=== PATIENT | male | born 1980 | race Caucasian/White ===

== ENCOUNTER 2017-05-26 18:59 | Emergency (ER) | payer BC ==
[2017-05-26 19:09] VITALS: BP 120/71
--- NOTE | 2017-05-26 19:25 | UC ---
Ear Complaint HPI - HPI Summary HPI Summary: complaint of left ear fullness for approx 1 week intermiitent pain in left ear tried to flush it wit peroxide which made the pain worse hearing is different in ear-less volume recent URI 2 weeks ago-denies sinus congestion and fever hasn't taken any medication for pain - History of Current Complaint Chief Complaint: UCEar Stated Complaint: LEFT EAR COMPLAINT Time Seen by Provider: 05/26/17 19:19 Hx Obtained From: Patient - Allergies/Home Medications Allergies/Adverse Reactions: Allergies Allergy/AdvReac Type Severity Reaction Status Date / Time No Known Allergies Allergy Verified 05/26/17 19:09 PMH/Surg Hx/FS Hx/Imm Hx Previously Healthy: Yes Other History Of: Negative For: HIV, Hepatitis B, Hepatitis C, Anticoagulant Therapy - Surgical History Surgical History: Yes Surgery Procedure, Year, and Place: CHOLECYSTECTOMY--05/2016 - Family History Known Family History: Positive: None, Other - biliary colic Negative: Hypertension, Diabetes - Social History Occupation: Employed Full-time Lives: With Family Alcohol Use: Rare Substance Use Type: None Smoking Status (MU): Former Smoker When Did the Patient Quit Smoking/Using Tobacco: 10 YRS Review of Systems Constitutional: Negative Skin: Negative Eyes: Negative ENT: Ear Ache Respiratory: Negative Cardiovascular: Negative Gastrointestinal: Negative Genitourinary: Negative Motor: Negative Neurovascular: Negative Musculoskeletal: Negative Neurological: Negative Psychological: Negative All Other Systems Reviewed And Are Negative: Yes Physical Exam Triage Information Reviewed: Yes Appearance: Well-Appearing, No Pain Distress, Well-Nourished Vital Signs: Initial Vital Signs Temp 97.8 F 05/26/17 19:03 Pulse 66 05/26/17 19:03 Resp 16 05/26/17 19:03 BP 120/71 05/26/17 19:03 Pulse Ox 99 05/26/17 19:03 Vital Signs Reviewed: Yes Eyes: Positive: Conjunctiva Clear ENT: Positive: Pharynx normal, TM bulging - left TM, TM red. Negative: Nasal congestion, Nasal drainage Neck: Positive: No Lymphadenopathy Respiratory: Positive: Lungs clear, Normal breath sounds, No respiratory distress Cardiovascular: Positive: RRR, No Murmur, Pulses Normal Abdomen Description: Positive: Nontender, Soft Bowel Sounds: Positive: Present Musculoskeletal Exam: Normal Neurological Exam: Normal Psychological Exam: Normal Skin Exam: Normal Ear Complaint Course/Dx - Differential Dx/Diagnosis Differential Diagnosis/HQI/PQRI: Cerumen Impaction, Otitis Externa, Otitis Media Provider Diagnoses: left otitis media Discharge - Discharge Plan Condition: Stable Disposition: HOME Prescriptions: Amoxicillin CAP* [Amoxicillin 500 MG CAP*] 500 mg PO Q12H #20 cap Patient Education Materials: Otitis Media (ED) Referrals: João Kidd DO [Primary Care Provider] - Additional Instructions: Please start antibiotic as directed Increase fluids and rest Take acetaminophen or ibuprofen for fever or pain Please review your discharge instructions. If your symptoms do not improve please call your primary care provider or return to urgent care.
== END 2017-05-26 19:31 | disposition home or self-care (01) ==
LOC: UCCORT 18:59
DX: H66.92 Otitis media, unspecified, left ear (principal); Z87.891 Personal history of nicotine dependence
CPT/HCPCS: 99212; G0463

== ENCOUNTER 2017-09-04 19:10 | Emergency (ER) | payer BC ==
[2017-09-04 19:51] VITALS: BP 119/73
[2017-09-04] MEDS ORDERED: Ibuprofen TAB* 600 MG PO ONE (20:02)
--- NOTE | 2017-09-04 20:07 | UC ---
Lower Extremity/Ankle HPI - HPI Summary HPI Summary: Patient presents to the ED with left heel pain. He states the pain is discretely located on the plantar surface of the left foot and heel which has been worsening over 2-3 weeks, worse with first bearing weight and better with rest. Denies known injury. Ibuprofen without relief. He is ambulating, but with pain. He denies history of heel spurs or plantar fasciitis. Denies other symptoms at this time. Pain is 7/10, constant and aching. - History of Current Complaint Chief Complaint: UCLowerExtremity Stated Complaint: RIGHT FOOT Time Seen by Provider: 09/04/17 19:46 Hx Obtained From: Patient Onset/Duration: Sudden Onset Severity Initially: Moderate Severity Currently: Moderate Pain Intensity: 4 Pain Scale Used: 0-10 Numeric Aggravating Factor(s): Standing, Ambulation Alleviating Factor(s): Rest, Elevation Able to Bear Weight: No - Risk Factors Gout Risk Factors: Negative DVT Risk Factors: Negative Septic Arthritis Risk Factor: Negative - Allergies/Home Medications Allergies/Adverse Reactions: Allergies Allergy/AdvReac Type Severity Reaction Status Date / Time No Known Allergies Allergy Verified 09/04/17 19:46 Home Medications: Home Medications Ibuprofen [Advil] 800 mg PO BID PRN 09/04/17 [History Confirmed 09/04/17] PMH/Surg Hx/FS Hx/Imm Hx Previously Healthy: Yes Other History Of: Negative For: HIV, Hepatitis B, Hepatitis C, Anticoagulant Therapy - Surgical History Surgical History: Yes Surgery Procedure, Year, and Place: CHOLECYSTECTOMY--05/2016 - Family History Known Family History: Positive: None, Other - biliary colic Negative: Hypertension, Diabetes - Social History Occupation: Employed Full-time Lives: With Family Alcohol Use: Rare Substance Use Type: None Smoking Status (MU): Former Smoker Have You Smoked in the Last Year: No When Did the Patient Quit Smoking/Using Tobacco: 10 YRS Review of Systems Constitutional: Negative Skin: Negative Respiratory: Negative Cardiovascular: Negative Gastrointestinal: Negative Motor: Negative Neurovascular: Negative Musculoskeletal: Myalgia - plantar surface pain in the left foot Neurological: Negative Is Patient Immunocompromised?: No All Other Systems Reviewed And Are Negative: Yes Physical Exam Triage Information Reviewed: Yes Appearance: Well-Appearing, Well-Nourished Vital Signs: Initial Vital Signs Temp 98.8 F 09/04/17 19:47 Pulse 70 09/04/17 19:47 Resp 14 09/04/17 19:47 BP 119/73 09/04/17 19:47 Pulse Ox 100 09/04/17 19:47 Vital Signs Reviewed: Yes Eye Exam: Normal Eyes: Positive: Conjunctiva Clear Dental Exam: Normal Neck exam: Normal Neck: Positive: Supple, No Lymphadenopathy Respiratory Exam: Normal Respiratory: Positive: Chest non-tender, Lungs clear Cardiovascular Exam: Normal Cardiovascular: Positive: RRR Musculoskeletal: Positive: Strength Intact, Other: - pain over plantar surface of the left foot Neurological Exam: Normal Neurological: Positive: Alert Psychological: Positive: Normal Response To Family, Age Appropriate Behavior Skin Exam: Normal Lower Extremity Course/Dx - Course Course Of Treatment: patient evaluated for left plantar surface foot and heel pain. Denies ankle pain. Denies numbness, tingling, temperature or color changes. ibuprofen without relief of pain. xray negative. plantar fasciitis likely etiology d/t pain location. - Differential Dx/Diagnosis Differential Diagnosis/HQI/PQRI: Sprain, Strain Provider Diagnoses: Plantar Fasciitis Discharge - Discharge Plan Condition: Stable Disposition: HOME Patient Education Materials: Plantar Fasciitis (ED) Forms: *Work Release Referrals: João Kidd DO [Primary Care Provider] - Additional Instructions: Ibuprofen 600mg three times daily HEAT obtain inserts as discussed
--- NOTE | 2017-09-04 20:34 | RAD ---
INDICATION: 3 weeks of right heel pain without known injury COMPARISON: None. TECHNIQUE: 3 views of the right foot were obtained. FINDINGS: The adequately corticated bones are properly aligned. Joint spaces appear maintained. No fracture, dislocation or focal bony abnormality is seen. IMPRESSION: Normal radiograph of the right foot. If the patient's symptoms persist, follow-up imaging is recommended.
== END 2017-09-04 20:47 | disposition home or self-care (01) ==
LOC: UCCORT 19:10
DX: M72.2 Plantar fascial fibromatosis (principal)
CPT/HCPCS: 99212; A9270-GY; G0463

== ENCOUNTER 2018-05-24 10:14 | Emergency (ER) | payer BC ==
[2018-05-24 10:38] VITALS: BP 118/74
--- NOTE | 2018-05-24 11:12 | UC ---
Ear Complaint HPI - HPI Summary HPI Summary: 38 year old male with left ear pain. Has had cough and cold for a week and now with ear pain. No fever. no dizziness. no ear discharge. no vertigo - History of Current Complaint Chief Complaint: UCEar Stated Complaint: LEFT EAR COMPLAINT Time Seen by Provider: 05/24/18 10:49 Hx Obtained From: Patient Onset/Duration: Gradual Onset Pain Intensity: 5 - Allergies/Home Medications Allergies/Adverse Reactions: Allergies Allergy/AdvReac Type Severity Reaction Status Date / Time No Known Allergies Allergy Verified 05/24/18 10:34 PMH/Surg Hx/FS Hx/Imm Hx Previously Healthy: Yes Other History Of: Negative For: HIV, Hepatitis B, Hepatitis C, Anticoagulant Therapy - Surgical History Surgical History: Yes Surgery Procedure, Year, and Place: CHOLECYSTECTOMY--05/2016. [facility] - Family History Known Family History: Positive: None, Other - biliary colic Negative: Hypertension, Diabetes - Social History Occupation: Employed Full-time Lives: With Family Alcohol Use: None Substance Use Type: None Smoking Status (MU): Former Smoker Have You Smoked in the Last Year: No When Did the Patient Quit Smoking/Using Tobacco: 10 YRS Review of Systems ENT: Ear Ache, Nasal Discharge Is Patient Immunocompromised?: No All Other Systems Reviewed And Are Negative: Yes Physical Exam Triage Information Reviewed: Yes Appearance: Well-Appearing, No Pain Distress, Well-Nourished Vital Signs: Initial Vital Signs Temp 98.3 F 05/24/18 10:34 Pulse 63 05/24/18 10:34 Resp 16 05/24/18 10:34 BP 118/74 05/24/18 10:34 Pulse Ox 98 05/24/18 10:34 Vital Signs Reviewed: Yes ENT: Positive: TM bulging, TM dull, TM red - left mild Neck exam: Normal Respiratory Exam: Normal Cardiovascular Exam: Normal Musculoskeletal Exam: Normal Neurological Exam: Normal Psychological Exam: Normal Skin Exam: Normal Ear Complaint Course/Dx - Course Course Of Treatment: start antihistamine. start antibiotic and discussed SE and aware of SE - Differential Dx/Diagnosis Differential Diagnosis/HQI/PQRI: Otitis Externa, Otitis Media, Perforated TM Provider Diagnoses: left AOM. allergy Discharge - Sign-Out/Discharge Documenting (check all that apply): Discharge/Admit/Transfer - Discharge Plan Condition: Good Disposition: HOME Prescriptions: Amoxicillin PO (*) [Amoxicillin 875 MG (*)] 875 mg PO BID 10 Days #20 tab Patient Education Materials: Ear Infection (ED) Referrals: João Kidd DO [Primary Care Provider] - 4 Days (if needed ) - Billing Disposition and Condition Condition: GOOD Disposition: Home
== END 2018-05-24 11:19 | disposition home or self-care (01) ==
LOC: UCCORT 10:14
DX: H66.92 Otitis media, unspecified, left ear (principal); T78.40XA Allergy, unspecified, initial encounter; Z87.891 Personal history of nicotine dependence
CPT/HCPCS: 99212; G0463